=== PATIENT | female | born 1990 | race Caucasian/White ===

== ENCOUNTER 2017-11-18 07:27 | Emergency (ER) | payer OTHER ==
[~2017-11-18] VITALS: Ht 177.8 cm; Wt 70.3 kg
[2017-11-18] MEDS ORDERED: CLARITIN10 MG PO (08:53)
[2017-11-18] MEDS ORDERED: PEPCID20 MG PO (08:53)
== END 2017-11-18 10:04 | disposition home or self-care (01) ==
LOC: ED 07:27
DX: L50.8 Other urticaria (principal); Z88.1 Allergy status to other antibiotic agents